=== PATIENT | male | born 1970 | race Native Hawaiian/Other Pacific Islander ===

== ENCOUNTER 2020-08-27 20:00 | Emergency (ER) | payer OTHER ==
[~2020-08-27] VITALS: Ht 188 cm; Wt 111.1 kg
[2020-08-27 22:15] VITALS: BP 139/88; TEMP 98.8
== END 2020-08-27 22:16 | disposition home or self-care (01) ==
LOC: ED 20:00
DX: S20.212A Contusion of left front wall of thorax, initial encounter (principal); V86.55XA Driver of 3- or 4- wheeled all-terrain vehicle (ATV) injured in nontraffic accident, initial encounter; Y92.89 Other specified places as the place of occurrence of the external cause
CPT/HCPCS: 99283